=== PATIENT | female | born 1930 | race Native Hawaiian/Other Pacific Islander ===

== ENCOUNTER 2016-08-12 09:43 | Emergency (ER) | payer OTHER ==
[~2016-08-12] VITALS: Ht 160 cm; Wt 60.8 kg
[~2016-08-12 09:43] MED LIST: ALEN70TA19 PO; LORCET PLUS 7.51 TAB PO; TRAM50TA PO; ZANTAC 75 PO
[2016-08-12 09:50] VITALS: TEMP 97.8
[2016-08-12 12:34] VITALS: BP 178/89
== END 2016-08-12 12:33 | disposition home or self-care (01) ==
LOC: ED 09:43
DX: M48.56XA Collapsed vertebra, not elsewhere classified, lumbar region, initial encounter for fracture (principal); M48.06 Spinal stenosis, lumbar region; Z87.311 Personal history of (healed) other pathological fracture; M51.86 Other intervertebral disc disorders, lumbar region
CPT/HCPCS: 81000; 96372; 99283; J1885

== ENCOUNTER 2016-08-14 11:59 | Outpatient (CLI) | payer OTHER ==
[2016-08-14 12:45] LABS: PLATELET COUNT 198 K/uL (152-353)
[2016-08-14 13:00] LABS: POTASSIUM 4.2 mmol/L (3.6-5.2)
== END 2016-08-14 19:07 | disposition home or self-care (01) ==
LOC: LABW 11:59
PROVIDERS: Internal Medicine
DX: M48.54XA Collapsed vertebra, not elsewhere classified, thoracic region, initial encounter for fracture (principal)
CPT/HCPCS: 36415; 80053; 84165; 85027; 85651

== ENCOUNTER 2016-09-09 09:38 | Outpatient (CLI) | payer OTHER | END 2016-09-09 11:30 | disposition home or self-care (01) | LOC: MRI 09:38 | DX: M54.17 Radiculopathy, lumbosacral region (principal) ==

== ENCOUNTER 2017-10-18 16:49 | Emergency (ER) | payer OTHER ==
[~2017-10-18] VITALS: Ht 149.9 cm; Wt 59.0 kg
[2017-10-18] MEDS ORDERED: LISI20TA11 PO (17:01)
[2017-10-18] MEDS ORDERED: OMEPRAZOLE20 M1 PO (17:01)
[2017-10-18 18:23] VITALS: BP 172/78; TEMP 97.6
== END 2017-10-18 18:24 | disposition home or self-care (01) ==
LOC: ED 16:49
DX: S22.088A Other fracture of T11-T12 vertebra, initial encounter for closed fracture (principal); S32.018A Other fracture of first lumbar vertebra, initial encounter for closed fracture; W01.0XXA Fall on same level from slipping, tripping and stumbling without subsequent striking against object, initial encounter; Y92.89 Other specified places as the place of occurrence of the external cause
CPT/HCPCS: 96372; 99282; J1885

== ENCOUNTER 2017-12-26 14:48 | Outpatient (CLI) | payer OTHER ==
[~2017-12-26 14:48] MED LIST changes: +LISI20TA11 PO; +OMEPRAZOLE20 M1 PO
[2017-12-26 15:31] LABS: PLATELET COUNT 223 K/uL (152-353)
[2017-12-26 15:45] LABS: POTASSIUM 4.4 mmol/L (3.6-5.2)
== END 2017-12-26 23:26 | disposition home or self-care (01) ==
LOC: LAB 14:48
PROVIDERS: Internal Medicine
DX: M81.0 Age-related osteoporosis without current pathological fracture (principal); I10 Essential (primary) hypertension
CPT/HCPCS: 36415; 80053; 80061; 82306; 84439; 85027